=== PATIENT | female | born 1990 | race Caucasian/White ===

== ENCOUNTER → 2019-10-04 | Outpatient (CLI) | payer BC ==
--- NOTE | 2019-10-04 12:10 | CT ---
EXAMINATION TYPE: CT brain wo/w con DATE OF EXAM: 10/04/2019 COMPARISON: None HISTORY: 29-year-old female Headaches x 1 month. TECHNIQUE: Examination was done in axial plane before and after intravenous contrast administration, 100 mL Isovue 300 was administered. Coronal and sagittal reconstructions performed. CT DLP: 2180.8 mGycm Automated exposure control for dose reduction was used. FINDINGS: There is no evidence of acute intracranial hemorrhage, acute ischemic changes, mass, mass-effect, or extra-axial fluid collection. There is no effacement of cerebral sulci or basal subarachnoid cister ns. There is no hydrocephalus. There is no midline shift. Abdi-white matter distinction is preserv ed. 2 mm of cerebellar tonsillar ectopia on the left compatible with benign cerebellar tonsillar ectopia. No enhancing intracranial lesions. Dural venous sinuses are patent. Mild mucosal thickening ethmoid air cells and maxillary sinuses. Orbits and globes are intact. Mastoi d air cells are pneumatized. IMPRESSION: No acute intracranial abnormality seen. No enhancing intracranial lesions. Mild chronic ethmoid and m axillary sinus disease.
== END | disposition home or self-care (01) ==
LOC: RADCTMAIN 11:15
PROVIDERS: ATTEND Family Medicine
DX: R51 Headache (principal)
CPT/HCPCS: 70470; Q9967

== ENCOUNTER → 2020-12-25 | Outpatient (CLI) | payer BC ==
--- NOTE | 2020-12-25 17:22 | FL ---
EXAMINATION TYPE: FL barium swallow DATE OF EXAM: 12/25/2020 CLINICAL HISTORY: Sensation in throat at the level of the thyroid. TECHNIQUE: A double contrast esophagram is performed utilizing air and barium. A total of 1 minute. seconds of fluoroscopic time was utilized during procedure and several images obtained. COMPARISON: None FINDINGS: There is a tiny diverticulum at the right cervical esophagus. The esophagus shows normal mo tility and emptying into the stomach. No evidence of hiatal hernia or stricture noted. No significan t gastroesophageal reflux was seen during real time performance of this study. Stomach and proximal s mall bowel are unremarkable on visualized portions. IMPRESSION: 1. Tiny diverticulum at the right cervical esophagus. 2. No hiatal hernia or gastroesophageal reflux.
== END | disposition home or self-care (01) ==
LOC: RADUSWWP 07:49
PROVIDERS: ATTEND Otolaryngology
DX: K22.5 Diverticulum of esophagus, acquired (principal)
CPT/HCPCS: 74220

== ENCOUNTER 2021-09-13 11:57 | Emergency (ER) | payer BC ==
[2021-09-13] MEDS ORDERED: MAG HYDROX/AL HYDROX/SIMETH 30 ML, HYOSCYAMINE ELIXIR 10 ML, LIDOCAINE VISCOUS 2% 10 ML PO STA ×3 (12:53)
[2021-09-13] MEDS ORDERED: PANTOPRAZOLE 40 MG/10 ML VIAL IVP STA (12:54)
[2021-09-13 13:22] LABS: Basophils # (A) 0.1 k/uL (0-0.2); Basophils % (A) 1 %; Eosinophils # (A) 0.1 k/uL (0-0.7); Eosinophils % (A) 2 %; HCT 41.7 % (34.0-46.0); Lymphocytes # (A) 2.6 k/uL (1.0-4.8); Lymphocytes % (A) 34 %; MCH 30.2 pg (25.0-35.0); MCHC 33.6 g/dL (31.0-37.0); MCV 89.7 fL (80.0-100.0); Mean Platelet Volume 7.4; Monocytes # (A) 0.4 k/uL (0-1.0); Monocytes % (A) 5 %; Neutrophils # (A) 4.3 k/uL (1.3-7.7); Neutrophils % (A) 56 %; Platelet Count 447 k/uL (150-450); RBC 4.65 m/uL (3.80-5.40); RDW 13.2 % (11.5-15.5); WBC 7.7 k/uL (3.8-10.6)
[2021-09-13 13:27] LABS: ALT 10 U/L (4-34); African American GFR (CKD) >90 (>60 ml/min/1.73 sqM); Albumin 4.2 g/dL (3.5-5.0); Anion Gap 8 mmol/L; Blood Urea Nitrogen 12 mg/dL (7-17); Calcium 9.3 mg/dL (8.4-10.2); Carbon Dioxide 21 mmol/L (22-30); Chloride 108 mmol/L (98-107); Glucose 85 mg/dL (74-99); Lipase 67 U/L (23-300); Non-African American GFR(CKD) >90 (>60 ml/min/1.73 sqM); Sodium 137 mmol/L (137-145); Total Bilirubin 0.6 mg/dL (0.2-1.3); Total Protein 7.6 g/dL (6.3-8.2)
[2021-09-13 13:33] LABS: AST 22 U/L (14-36); Alkaline Phosphatase 86 U/L (38-126); Potassium 4.6 mmol/L (3.5-5.1)
--- NOTE | 2021-09-13 14:04 | XR ---
EXAMINATION TYPE: XR chest 2V DATE OF EXAM: 09/13/2021 COMPARISON: None INDICATION: Cough, pain TECHNIQUE: Single frontal view of the chest is obtained. FINDINGS: The heart size is normal. The pulmonary vasculature is normal. The lungs are clear. IMPRESSION: 1. No acute pulmonary process.
--- NOTE | 2021-09-13 14:21 | ED ---
General Adult HPI - General Chief complaint: Chest Pain Stated complaint: Acid reflex, Chest pain, RAMU Source: patient Mode of arrival: ambulatory Limitations: no limitations - History of Present Illness Initial comments: 31-year-old female with past medical history of reflux presents to the emergency room with reported chest pain and worsening reflux symptoms. Reports that she follows with Dr. Cordova. She had an EGD performed which demonstrated gastric reflux. She is on omeprazole twice daily for her symptoms. Reports that she's had increasing stress at work over the past week and therefore has worsening reflux sensations. Makes her have substernal chest pain which radiates into her left and right side. Also reports to some difficulty breathing. States her symptoms are worse when she is at work. She follows a strict diet for her reflux no alcohol use. No NSAID use. Denies any black or bloody stools. No nausea or vomiting. No family history of cardiac disease to include sudden cardiac . Denies any fevers, chills or cough. She has been taking Tums at home without any relief in her symptoms. No other alleviating, precipitating or modifying factors - Related Data Previous Rx's Medication Instructions Recorded Famotidine [Pepcid] 20 mg PO BID #28 tablet 09/13/21 Mag Hydrox/Al Hydrox/Simeth 10 ml PO QID PRN #355 ml 09/13/21 [Maalox] Pantoprazole Sodium [Protonix] 20 mg PO DAILY #30 tab 09/13/21 Allergies Allergy/AdvReac Type Severity Reaction Status Date / Time No Known Allergies Allergy Verified 09/13/21 12:00 Review of Systems ROS Statement: Those systems with pertinent positive or pertinent negative responses have been documented in the HPI. ROS Other: All systems not noted in ROS Statement are negative. Past Medical History Past Medical History: GERD/Reflux History of Any Multi-Drug Resistant Organisms: None Reported Additional Past Surgical History / Comment(s): I&D of polynoidal cyst, oral Past Psychological History: Anxiety Smoking Status: Never smoker Past Alcohol Use History: None Reported Past Drug Use History: None Reported General Exam Limitations: no limitations Course Vital Signs 09/13/21 09/13/21 12:02 14:30 Temperature 98 F 97.8 F Pulse Rate 96 79 Respiratory 18 16 Rate Blood Pressure 127/83 118/83 O2 Sat by Pulse 96 99 Oximetry EKG Findings - EKG Comments: EKG Findings:: EKG demonstrates sinus rhythm with a rate of 78. NE interval 117. QRS 83. QTC 393. No acute ST segment elevations or depressions concerning for ischemic changes. No signs of [id number] or Brugada syndrome. Medical Decision Making - Medical Decision Making The patient is placed in room 2. A thorough history and physical exam was performed. Patient placed on continuous pulse ox and cardiac monitoring. 12- lead EKG was obtained. Laboratory studies are conducted and reviewed. Patient does have a chest x-ray performed. She was given a GI cocktail and 40 mg of Protonix. Patient does have marked improvement in her symptoms. Patient will be discharged home with a prescription for Maalox, Pepcid and Protonix. Instructed that her insurance, he may not cover the Protonix and she may need prior authorization. If this is the case the patient needs to follow up with GI for further management of her reflux symptoms. If patient is able to obtain the Protonix, she is to stop taking the omeprazole. Return for any new or worsening symptoms. Patient agreed the treatment plan was discharged with stable condition - Lab Data Result diagrams: 09/13/21 13:08 09/13/21 13:08 Lab Results 09/13/21 09/13/21 09/13/21 Range/Units 13:08 13:08 13:08 WBC 7.7 (3.8-10.6) k/uL RBC 4.65 (3.80-5.40) m/uL Hgb 14.0 (11.4-16.0) gm/dL Hct 41.7 (34.0-46.0) % MCV 89.7 (80.0-100.0) fL MCH 30.2 (25.0-35.0) pg MCHC 33.6 (31.0-37.0) g/dL RDW 13.2 (11.5-15.5) % Plt Count 447 (150-450) k/uL MPV 7.4 Neutrophils % 56 % Lymphocytes % 34 % Monocytes % 5 % Eosinophils % 2 % Basophils % 1 % Neutrophils # 4.3 (1.3-7.7) k/uL Lymphocytes # 2.6 (1.0-4.8) k/uL Monocytes # 0.4 (0-1.0) k/uL Eosinophils # 0.1 (0-0.7) k/uL Basophils # 0.1 (0-0.2) k/uL Sodium 137 (137-145) mmol/L Potassium 4.6 (3.5-5.1) mmol/L Chloride 108 H (98-107) mmol/L Carbon Dioxide 21 L (22-30) mmol/L Anion Gap 8 mmol/L BUN 12 (7-17) mg/dL Creatinine 0.62 (0.52-1.04) mg/dL Est GFR (CKD-EPI)AfAm >90 (>60 ml/min/1.73 sqM) Est GFR (CKD-EPI)NonAf >90 (>60 ml/min/1.73 sqM) Glucose 85 (74-99) mg/dL Calcium 9.3 (8.4-10.2) mg/dL Total Bilirubin 0.6 (0.2-1.3) mg/dL AST 22 (14-36) U/L ALT 10 (4-34) U/L Alkaline Phosphatase 86 (38-126) U/L Troponin I <0.012 (0.000-0.034) ng/mL Total Protein 7.6 (6.3-8.2) g/dL Albumin 4.2 (3.5-5.0) g/dL Lipase 67 (23-300) U/L Disposition Clinical Impression: Atypical chest pain, Gastroesophageal reflux disease Disposition: HOME SELF-CARE Condition: Stable Instructions (If sedation given, give patient instructions): GERD (Gastroesophageal Reflux Disease) (ED) Additional Instructions: Please take the prescribed medications as directed. If you do obtained the prescription for Protonix, stop taking omeprazole. Return to the emergency department for any new or worsening symptoms. Follow up with Dr. Grey or another GI doctor for further management [facility] www[email or web address] [id number] [facility] [address], [place] [address] Prescriptions: Mag Hydrox/Al Hydrox/Simeth [Maalox] 10 ml PO QID PRN #355 ml PRN Reason: Heartburn Famotidine [Pepcid] 20 mg PO BID #28 tablet Pantoprazole Sodium [Protonix] 20 mg PO DAILY #30 tab Is patient prescribed a controlled substance at d/c from ED?: No Referrals: Jimbo Gallardo MD [Primary Care Provider] - 1-2 days Time of Disposition: 14:22
[2021-09-13 14:31] VITALS: BP 118/83; PULSE 79; RESP 16; TEMP 97.8
== END 2021-09-13 14:30 | disposition home or self-care (01) ==
LOC: EC 11:57
DX: K21.9 Gastro-esophageal reflux disease without esophagitis (principal); Z79.899 Other long term (current) drug therapy
CPT/HCPCS: 36415; 80053; 83690; 84484; 85025; 71046; 99285; 96374; C9113